=== PATIENT | female | born 1995 | race Caucasian/White ===

== ENCOUNTER 2021-07-03 15:03 | Outpatient (CLI) | payer BC, SELFPAY | END 2021-07-03 23:59 | disposition short-term general hospital (02) | LOC: LABSPEC 15:05 | PROVIDERS: Referring Provider Physician Assistant; Visit Provider Physician Assistant | DX: Z11.52 Encounter for screening for COVID-19 (principal) | CPT/HCPCS: 87635; U0003; U0005 ==